=== PATIENT | male | born 1950 | race Caucasian/White ===

== ENCOUNTER 2021-03-13 05:33 | Day surgery (SDC) | payer MEDICARE, MEDICAID ==
[~2021-03-13] VITALS: Ht 172.7 cm; Wt 109.5 kg
[2021-03-13] MEDS ORDERED: SODIUM CHLORIDE 0.9% 1,000 ML ONE ×2 (05:53→09:13)
[2021-03-13] MEDS ORDERED: ASPIRIN 81 MG CHEWABLE TABLET PO ONE (06:00)
[2021-03-13] MEDS ORDERED: DiphenhydrAMINE HCL 50 MG CAPSULE PO ONE (06:00)
[2021-03-13] MEDS ORDERED: DIAZEPAM 5 MG TABLET PO ONE (06:00)
[2021-03-13] MEDS ORDERED: SODIUM CHLORIDE 0.9% 1,000 ML IV SCH (06:00)
[2021-03-13 06:38] LABS: GLUCOMETER DEV NAME(LOC) SDS.; GLUCOSE,POINT OF CARE 152 MG/DL (70-110)
[2021-03-13] MEDS ORDERED: DIAZEPAM 5 MG TABLET ONE (06:59)
[2021-03-13] MEDS ORDERED: DiphenhydrAMINE HCL 50 MG CAPSULE ONE (06:59)
[2021-03-13] MEDS ORDERED: ASPIRIN 81 MG CHEWABLE TABLET ONE (06:59)
[2021-03-13] MEDS ORDERED: LIDOCAINE/PF 1% 30 ML VIAL ONE (07:08)
[2021-03-13] MEDS ORDERED: SODIUM BICARBONATE 50 MEQ/50 ML VIAL ONE (07:08)
[2021-03-13] MEDS ORDERED: IOHEXOL 300 MG/ML 100 ML VIAL ONE (07:08)
[2021-03-13] MEDS ORDERED: HEPARIN SODIUM 1000 UNITS/NS 1,000 ML ONE (07:08)
[2021-03-13] MEDS ORDERED: IOHEXOL 300 MG/ML 150 ML VIAL ONE ×2 (07:08→07:51)
[2021-03-13] MEDS ORDERED: IOHEXOL 300 MG/ML 50 ML VIAL ONE (07:08)
[2021-03-13] MEDS ORDERED: EMPA10TA PO (07:19)
[2021-03-13] MEDS ORDERED: METO25 PO (07:19)
[2021-03-13] MEDS ORDERED: METF-446 PO (07:19)
[2021-03-13] MEDS ORDERED: AMLO2.5T29 PO (07:19)
[2021-03-13] MEDS ORDERED: NITR0.4T50 SL (07:19)
[2021-03-13] MEDS ORDERED: CLOP75TA32 PO (07:19)
[2021-03-13] MEDS ORDERED: ASPI-1444 PO (07:19)
[2021-03-13] MEDS ORDERED: ATOR40TA71 PO (07:19)
[2021-03-13] MEDS ORDERED: LEVO50TA11 PO (07:19)
[2021-03-13 07:31] VITALS: BP 134/79
[2021-03-13] MEDS ORDERED: FentaNYL CITRATE PF 100 MCG/2 ML VIAL ONE ×2 (07:36→07:43)
[2021-03-13] MEDS ORDERED: MIDAZOLAM HCL 2 MG/2 ML VIAL ONE ×2 (07:36→07:43)
[2021-03-13] MEDS ORDERED: HEPARIN SODIUM,PORCINE 1,000 UNITS/ML 10 ML VIAL ONE ×2 (07:42→07:59)
[2021-03-13] MEDS ORDERED: FentaNYL CITRATE PF 100 MCG/2 ML VIAL IVP ONE ×2 (07:45→08:15)
[2021-03-13] MEDS ORDERED: LIDOCAINE 1% 30 ML/SOD BICARB 8.4% 4 ML SQ ONE (07:45)
[2021-03-13] MEDS ORDERED: HEPARIN SODIUM 1000 UNITS/NS 1,000 ML IARTER ONE (07:45)
[2021-03-13] MEDS ORDERED: SODIUM CHLORIDE 0.9% 500 ML IV ONE (07:45)
[2021-03-13] MEDS ORDERED: IOHEXOL 300 MG/ML 150 ML VIAL IARTER ONE (07:45)
[2021-03-13] MEDS ORDERED: MIDAZOLAM HCL 2 MG/2 ML VIAL IVP ONE ×2 (07:45→08:15)
[2021-03-13] MEDS ORDERED: TICAGRELOR 90 MG TABLET ONE (07:56)
[2021-03-13] MEDS ORDERED: TICAGRELOR 90 MG TABLET PO ONE ×2 (08:00→15:00)
[2021-03-13] MEDS ORDERED: HEPARIN SODIUM,PORCINE 5,000 UNITS/ML VIAL IVP ONE (08:00)
[2021-03-13] MEDS ORDERED: SODIUM CHLORIDE 0.9% 1,000 ML IV ONE (08:30)
[2021-03-13 08:32] VITALS: BP 119/69
== END 2021-03-13 15:05 | disposition home or self-care (01) ==
LOC: CATHLAB 05:33
PROVIDERS: ATTEND Internal Medicine Interventional Cardiology
DX: I25.10 Atherosclerotic heart disease of native coronary artery without angina pectoris (principal); I25.2 Old myocardial infarction; E78.00 Pure hypercholesterolemia, unspecified; M19.90 Unspecified osteoarthritis, unspecified site; Z72.89 Other problems related to lifestyle
CPT/HCPCS: 82962; 93005; 93458; 99152; 99153; C1760; C1874; C1887; C9600; J1644 ×2; J2250; J3010; J3490 ×2; J7030; Q9967 ×3; 92920; 92928